=== PATIENT | male | born 1940 | race Hispanic/Latino ===

== ENCOUNTER 2022-07-14 10:47 | Inpatient (IN) | payer OTHER, MEDICARE ==
[~2022-07-14] VITALS: Ht 157.5 cm; Wt 86.3 kg
[2022-07-14] MEDS ORDERED: ONDANSETRON 4MG INJ IVP PRN (11:30)
[2022-07-14] MEDS ORDERED: DIPHENHYDRAMINE HCL 25 MG CAPSULE PO PRN (11:30)
[2022-07-14] MEDS ORDERED: FERR240T10 PO (11:36)
[2022-07-14] MEDS ORDERED: PANT40TA54 PO (11:36)
[2022-07-14] MEDS ORDERED: SEMA1PEN3 SQ (11:36)
[2022-07-14] MEDS ORDERED: CLOT15CR5 TP (11:36)
[2022-07-14] MEDS ORDERED: AMLO-258 PO (11:36)
[2022-07-14] MEDS ORDERED: GABA-529 PO (11:36)
[2022-07-14] MEDS ORDERED: SIMV-43 PO (11:36)
[2022-07-14] MEDS ORDERED: CLOP75TA32 PO (11:36)
[2022-07-14] MEDS ORDERED: DIGO0.12 PO (11:36)
[2022-07-14] MEDS ORDERED: CELE-84 PO (11:36)
[2022-07-14] MEDS ORDERED: METF-446 PO (11:36)
[2022-07-14] MEDS ORDERED: ALLO100T PO (11:36)
[2022-07-14] MEDS ORDERED: CYCL30DR OP (11:36)
[2022-07-14] MEDS ORDERED: METO-409 PO (11:36)
[2022-07-14] MEDS ORDERED: LISI40TA9 PO (11:36)
[2022-07-14 11:39] LABS: BASOPHILS % (AUTO) 0.2 % (0.0-5.0); EOSINOPHILS % (AUTO) 0.1 % (0.0-8.0); HEMATOCRIT 29.4 % (42-54); LYMPHOCYTES % (AUTO) 7.6 % (21.0-51.0); MEAN CORPUSCULAR HEMOGLOBIN 30.8 pg (27.0-33.0); MEAN CORPUSCULAR VOLUME 96.4 fL (79-99); MONOCYTES % (AUTO) 4.3 % (3.0-13.0); NEUTROPHILS % (AUTO) 87.1 % (40.0-77.0); PLATELET COUNT (AUTO) 411 K/uL (130-400); RED BLOOD CELL COUNT(AUTO) 3.05 MIL/uL (4.50-6.20); RED CELL DISTRIBUTION WIDTH 13.6 % (11.0-15.5); WHITE BLOOD COUNT (AUTO) 16.1 K/uL (4.8-10.8)
[2022-07-14 11:55] LABS: CREATININE 2.3 mg/dL (0.5-1.5)
[2022-07-14 11:56] LABS: POTASSIUM 6.4 mmol/L (3.5-5.1)
[2022-07-14 12:03] LABS: BILIRUBIN,DIRECT 0.1 mg/dL (0.0-0.3)
[2022-07-14 12:04] LABS: ALBUMIN 3.8 g/dL (3.5-5.0); TOTAL PROTEIN, SERUM 7.9 g/dL (6.0-8.3)
[2022-07-14] MEDS ORDERED: KAYEXALATE 15GM/60ML PO SCH (12:30)
[2022-07-14] MEDS: DEXTROSE 5 %-0.45 % NACL 1,000 ML IV SCH (12:39)
[2022-07-14 13:10] LABS: APPEARANCE,URINE CLEAR (CLEAR); BILIRUBIN,URINE NEGATIVE (NEGATIVE); COLOR,URINE LIGHT-YELLOW (YELLOW); GLUCOSE, URINE (UA) NEGATIVE (NEGATIVE); KETONES,URINE NEGATIVE (NEGATIVE); LEUKOCYTE ESTERASE ,URINE 75 Leu/uL (NEGATIVE); NITRATE,URINE NEGATIVE (NEGATIVE); OCCULT BLOOD,URINE NEGATIVE (NEGATIVE); PROTEIN,URINE 20 mg/dL (NEGATIVE); UROBILINOGEN,URINE 0.2 mg/dL (0.2-1.0)
[2022-07-14 13:23] LABS: BACTERIA,URINE RARE /HPF (None Seen); MUCUS,URINE RARE LPF (None Seen); RBC,URINE 0-1 /HPF (0-1)
[2022-07-14 17:11] VITALS: BP 103/49
[2022-07-14] MEDS ORDERED: KAYEXALATE 15GM/60ML PO ONE ×2 (18:30→20:30)
[2022-07-14 20:00] VITALS: BP 121/62
[2022-07-14] MEDS: GABAPENTIN 100 MG CAPSULE PO SCH (20:58)
[2022-07-14] MEDS: FAMOTIDINE 20MG TAB PO SCH (20:58)
[2022-07-15] VITALS: BP 121/62
[2022-07-15 00:50] LABS: CREATININE 2.2 mg/dL (0.5-1.5); POTASSIUM 4.9 mmol/L (3.5-5.1)
[2022-07-15] MEDS: DEXTROSE 5 %-0.45 % NACL 1,000 ML IV SCH ×3 (00:50→18:15)
[2022-07-15 04:00] VITALS: BP 130/62
[2022-07-15 05:31] LABS: BASOPHILS % (AUTO) 0.1 % (0.0-5.0); EOSINOPHILS % (AUTO) 0.2 % (0.0-8.0); HEMATOCRIT 24.4 % (42-54); MEAN CORPUSCULAR HEMOGLOBIN 30.7 pg (27.0-33.0); MEAN CORPUSCULAR VOLUME 96.1 fL (79-99); MONOCYTES % (AUTO) 2.3 % (3.0-13.0); NEUTROPHILS % (AUTO) 88.7 % (40.0-77.0); PLATELET COUNT (AUTO) 333 K/uL (130-400); RED BLOOD CELL COUNT(AUTO) 2.54 MIL/uL (4.50-6.20); RED CELL DISTRIBUTION WIDTH 13.6 % (11.0-15.5); WHITE BLOOD COUNT (AUTO) 12.4 K/uL (4.8-10.8)
[2022-07-15 05:41] LABS: ALBUMIN 3.1 g/dL (3.5-5.0); BILIRUBIN,DIRECT 0.1 mg/dL (0.0-0.3); CREATININE 2.1 mg/dL (0.5-1.5); POTASSIUM 4.5 mmol/L (3.5-5.1); TOTAL PROTEIN, SERUM 7.1 g/dL (6.0-8.3)
[2022-07-15 08:00] VITALS: BP 140/61
[2022-07-15] MEDS: FAMOTIDINE 20MG TAB PO SCH ×2 (11:02→21:52)
[2022-07-15] MEDS: CLOPIDOGREL 75MG TAB PO SCH (11:02)
[2022-07-15] MEDS: CEFTRIAXONE 1G VIAL IVP SCH (11:03)
[2022-07-15] MEDS: METOPROLOL SUCCINATE 50 MG TAB.SR.24H PO SCH (11:03)
[2022-07-15 11:33] VITALS: BP 126/58
[2022-07-15 16:00] VITALS: BP 128/66
[2022-07-15 20:00] VITALS: BP 116/61
[2022-07-15] MEDS: GABAPENTIN 100 MG CAPSULE PO SCH (21:52)
[2022-07-16] VITALS: BP 124/63
[2022-07-16 04:00] VITALS: BP 117/53
[2022-07-16 05:31] LABS: HEMATOCRIT 21.8 % (42-54); MEAN CORPUSCULAR HEMOGLOBIN 31.1 pg (27.0-33.0); MEAN CORPUSCULAR HGB CONC 32.6 g/dL (32.0-36.0); MEAN CORPUSCULAR VOLUME 95.6 fL (79-99); RED BLOOD CELL COUNT(AUTO) 2.28 MIL/uL (4.50-6.20); RED CELL DISTRIBUTION WIDTH 13.9 % (11.0-15.5); WHITE BLOOD COUNT (AUTO) 8.5 K/uL (4.8-10.8)
[2022-07-16 06:09] LABS: ALBUMIN 2.8 g/dL (3.5-5.0); CREATININE 1.7 mg/dL (0.5-1.5); POTASSIUM 4.1 mmol/L (3.5-5.1); TOTAL PROTEIN, SERUM 6.6 g/dL (6.0-8.3)
[2022-07-16 08:00] VITALS: BP 120/56
[2022-07-16] MEDS: METOPROLOL SUCCINATE 50 MG TAB.SR.24H PO SCH (09:42)
[2022-07-16] MEDS: FAMOTIDINE 20MG TAB PO SCH ×2 (09:42→20:02)
[2022-07-16] MEDS: CEFTRIAXONE 1G VIAL IVP SCH (09:43)
[2022-07-16] MEDS: CLOPIDOGREL 75MG TAB PO SCH (09:43)
[2022-07-16 12:00] VITALS: BP 117/63
[2022-07-16] MEDS: DEXTROSE 5 %-0.45 % NACL 1,000 ML IV SCH ×3 (12:14→16:54)
[2022-07-16] MEDS ORDERED: 0.9% NACL 250ML 250 ML ONE (12:46)
[2022-07-16 16:00] VITALS: BP 125/64
[2022-07-16 20:00] VITALS: BP 134/62
[2022-07-16] MEDS: GABAPENTIN 100 MG CAPSULE PO SCH (20:02)
[2022-07-17] VITALS (7 sets, daily range): BP systolic 122–150; BP diastolic 59–72
[2022-07-17 05:58] LABS: BASOPHILS % (AUTO) 0.2 % (0.0-5.0); HEMATOCRIT 26.3 % (42-54); LYMPHOCYTES % (AUTO) 22.2 % (21.0-51.0); MEAN CORPUSCULAR HEMOGLOBIN 30.2 pg (27.0-33.0); MEAN CORPUSCULAR HGB CONC 32.3 g/dL (32.0-36.0); MEAN CORPUSCULAR VOLUME 93.6 fL (79-99); MONOCYTES % (AUTO) 10.8 % (3.0-13.0); NEUTROPHILS % (AUTO) 64.3 % (40.0-77.0); PLATELET COUNT (AUTO) 319 K/uL (130-400); RED BLOOD CELL COUNT(AUTO) 2.81 MIL/uL (4.50-6.20); RED CELL DISTRIBUTION WIDTH 15.2 % (11.0-15.5); WHITE BLOOD COUNT (AUTO) 9.6 K/uL (4.8-10.8)
[2022-07-17 06:26] LABS: CREATININE 1.6 mg/dL (0.5-1.5); POTASSIUM 4.1 mmol/L (3.5-5.1); TOTAL PROTEIN, SERUM 7.4 g/dL (6.0-8.3)
[2022-07-17] MEDS ORDERED: ACETAMINOPHEN 325 MG TAB PO PRN ×3 (08:30)
[2022-07-17] MEDS: CLOPIDOGREL 75MG TAB PO SCH (09:46)
[2022-07-17] MEDS: FAMOTIDINE 20MG TAB PO SCH ×2 (09:46→19:46)
[2022-07-17] MEDS: CEFTRIAXONE 1G VIAL IVP SCH (09:46)
[2022-07-17] MEDS: METOPROLOL SUCCINATE 50 MG TAB.SR.24H PO SCH (09:46)
[2022-07-17] MEDS: DEXTROSE 5 %-0.45 % NACL 1,000 ML IV SCH (12:10)
[2022-07-17] MEDS ORDERED: PEG 3350/NA SULF,BICARB,CL/KCL 4000 ML SOLN PO SCH (16:29)
[2022-07-17] MEDS: GABAPENTIN 100 MG CAPSULE PO SCH (19:46)
[2022-07-18] VITALS (17 sets, daily range): BP systolic 108–151; BP diastolic 65–77
[2022-07-18 02:27] LABS: APPEARANCE,URINE CLEAR (CLEAR); BILIRUBIN,URINE NEGATIVE (NEGATIVE); COLOR,URINE LIGHT-YELLOW (YELLOW); GLUCOSE, URINE (UA) NEGATIVE (NEGATIVE); KETONES,URINE NEGATIVE (NEGATIVE); LEUKOCYTE ESTERASE ,URINE NEGATIVE Leu/uL (NEGATIVE); NITRATE,URINE NEGATIVE (NEGATIVE); OCCULT BLOOD,URINE NEGATIVE (NEGATIVE); PROTEIN,URINE 50 mg/dL (NEGATIVE); UROBILINOGEN,URINE 0.2 mg/dL (0.2-1.0)
[2022-07-18 02:32] LABS: BACTERIA,URINE RARE /HPF (None Seen); MUCUS,URINE RARE LPF (None Seen); RBC,URINE 0-1 /HPF (0-1)
[2022-07-18 05:16] LABS: BASOPHILS % (AUTO) 0.2 % (0.0-5.0); EOSINOPHILS % (AUTO) 0.7 % (0.0-8.0); HEMATOCRIT 24.7 % (42-54); LYMPHOCYTES % (AUTO) 19.9 % (21.0-51.0); MEAN CORPUSCULAR HEMOGLOBIN 30.2 pg (27.0-33.0); MEAN CORPUSCULAR VOLUME 94.3 fL (79-99); MONOCYTES % (AUTO) 12.6 % (3.0-13.0); PLATELET COUNT (AUTO) 324 K/uL (130-400); RED BLOOD CELL COUNT(AUTO) 2.62 MIL/uL (4.50-6.20); RED CELL DISTRIBUTION WIDTH 14.7 % (11.0-15.5); WHITE BLOOD COUNT (AUTO) 9.4 K/uL (4.8-10.8)
[2022-07-18 05:51] LABS: ALBUMIN 2.8 g/dL (3.5-5.0); CREATININE 1.5 mg/dL (0.5-1.5); POTASSIUM 4.2 mmol/L (3.5-5.1)
[2022-07-18] MEDS ORDERED: LIDOCAINE HCL-MPF 2% 10ML AMP IJ ONE (06:57)
[2022-07-18] MEDS ORDERED: PROPOFOL 10 MG/ML 20ML VIAL IV ONE (06:57)
[2022-07-18] MEDS ORDERED: GLYCOPYRROLATE 1 MG/5 ML SYRINGE ONE (06:58)
[2022-07-18] MEDS: CEFTRIAXONE 1G VIAL IVP SCH (10:05)
[2022-07-18] MEDS: FAMOTIDINE 20MG TAB PO SCH (10:05)
[2022-07-18] MEDS: CLOPIDOGREL 75MG TAB PO SCH (10:05)
[2022-07-18] MEDS: METOPROLOL SUCCINATE 50 MG TAB.SR.24H PO SCH (10:06)
[2022-07-18] MEDS ORDERED: CEFU500T67 PO (15:26)
== END 2022-07-18 16:06 | disposition home or self-care (01) | DRG 641 ==
LOC: EDH 10:47 → DIRECT 11:16 → OBSVTOIN 11:16 → 3AH 16:49
PROVIDERS: ADMIT Internal Medicine; ATTEND Internal Medicine
PROC: 30233N1 Transfusion of Nonautologous Red Blood Cells into Peripheral Vein, Percutaneous Approach (ICD-10-PCS; principal; 2022-07-16)
PROC: 0DB98ZX Excision of Duodenum, Via Natural or Artificial Opening Endoscopic, Diagnostic (ICD-10-PCS; 2022-07-16)
PROC: 0DB68ZX Excision of Stomach, Via Natural or Artificial Opening Endoscopic, Diagnostic (ICD-10-PCS; 2022-07-16)
PROC: 0DBK8ZX Excision of Ascending Colon, Via Natural or Artificial Opening Endoscopic, Diagnostic (ICD-10-PCS; 2022-07-16)
PROC: 0DBM8ZX Excision of Descending Colon, Via Natural or Artificial Opening Endoscopic, Diagnostic (ICD-10-PCS; 2022-07-16)
DX: E86.0 Dehydration (principal); N17.9 Acute kidney failure, unspecified; Z20.822 Contact with and (suspected) exposure to COVID-19; E87.5 Hyperkalemia; D64.9 Anemia, unspecified; D72.829 Elevated white blood cell count, unspecified; K21.9 Gastro-esophageal reflux disease without esophagitis; E11.65 Type 2 diabetes mellitus with hyperglycemia; E78.5 Hyperlipidemia, unspecified; I10 Essential (primary) hypertension; I25.10 Atherosclerotic heart disease of native coronary artery without angina pectoris; K57.30 Diverticulosis of large intestine without perforation or abscess without bleeding
CPT/HCPCS: 36415; 36430; 43239; 45380; 71045; 74176; 76770; 80048; 80053; 80061; 80076; 81001; 82948; 84132; 85025; 85027; 86850; 86900; 86901; 86923; 87040; 87077; 87088; 87186; 87635; 92610; A4606; G0378; J0696; J2704; J3490; J7030; J7042; J7050; P9016